=== PATIENT | female | born 1950 ===

== ENCOUNTER 2016-03-08 13:22 | Emergency (ER) | payer SELFPAY ==
[~2016-03-08] VITALS: Ht 165.1 cm; Wt 52.0 kg
[2016-03-08 13:24] VITALS: PULSE 55; RESP 16; TEMP 97.7; O2SAT 97
== END 2016-03-08 14:35 | disposition left against medical advice (07) ==
LOC: NED 13:22
DX: M54.2 Cervicalgia (principal)
CPT/HCPCS: 99281